=== PATIENT | female | born 1950 | race Caucasian/White ===

== ENCOUNTER 2021-09-02 10:46 | Emergency (ER) | payer MEDICARE, OTHER ==
[~2021-09-02 10:46] MED LIST: ASPIR 8181 MG PO; CALCIUM + D PO; CBD OIL SL; COLCHICINE0.6 MG PO; COUMADIN2.5 MG PO; COUMADIN5 MG PO; EMBEDA ER 20-01 EACH PO; FLONASE 0.05% N16 GM; KRILL OIL500 MG PO; LIPITOR TAB 1010 MG PO; LOPRESSOR 25 MG25 MG PO; LOVENOX80 MG/0.8 PO; MAGOX 400400 MG PO; MICROZIDE12.5 MG PO; NORCO 5-325 TA1 EACH PO; VITAMIN D350000 UNIT PO; ZESTRIL40 MG PO
[2021-09-02] MEDS ORDERED: CEFUROXIME500 MG PO (14:15)
== END 2021-09-02 14:31 | disposition home or self-care (01) ==
LOC: ER1 10:46
DX: S16.1XXA Strain of muscle, fascia and tendon at neck level, initial encounter (principal); S39.012A Strain of muscle, fascia and tendon of lower back, initial encounter; S70.02XA Contusion of left hip, initial encounter; S20.212A Contusion of left front wall of thorax, initial encounter; S50.312A Abrasion of left elbow, initial encounter; N39.0 Urinary tract infection, site not specified; R51.9 Headache, unspecified; T45.515A Adverse effect of anticoagulants, initial encounter; E11.9 Type 2 diabetes mellitus without complications; I10 Essential (primary) hypertension; Z95.4 Presence of other heart-valve replacement; Z86.73 Personal history of transient ischemic attack (TIA), and cerebral infarction without residual deficits; Z90.49 Acquired absence of other specified parts of digestive tract; W00.1XXA Fall from stairs and steps due to ice and snow, initial encounter; Y92.009 Unspecified place in unspecified non-institutional (private) residence as the place of occurrence of the external cause
CPT/HCPCS: 70450; 71111; 72125; 72131; 73502; 81001; 85610; 99284